=== PATIENT | female | born 1975 | race African-American/Black ===

== ENCOUNTER 2018-01-15 08:59 | Outpatient (CLI) | payer OTHER ==
[2018-01-15] MEDS ORDERED: Magnevist 469MG/ML 20 ML VIAL ONE (09:00)
--- NOTE | 2018-01-15 12:16 | MRI ---
BRAIN MRI AND INTERNAL AUDITORY CANAL MRI WITH AND WITHOUT CONTRAST: HISTORY: Hearing loss in the right ear. COMPARISON: None. TECHNIQUE: Brain and internal auditory canal MRI performed with and without intravenous Gadolinium administratio n. Multisequential, multiplanar imaging is performed. FINDINGS: BRAIN: The calvarium has a normal T1 marrow signal intensity. Midline brain parenchymal structures are unremarkable. Note is made of a partially empty sella. No parenchymal mass, mass effect, or midline shift. Brain volume is age appropriate. Cortical webster white matter differentiation is preserved. The ventricles and sulci are patent and symmetric. Central arterial flow voids are maintained. Absent restricted diffusion. Mild mucosal thickening of the left and right ethmoid air cells. Adequate mastoid air cell aeration. No significant T2 or FLAIR white matter hyperintensities. No pathologic enhancement of the brain parenchyma. INTERNAL AUDITORY CANALS: Symmetric signal intensity in both inner ear structures. No abnormal enha ncement or enhancing masses. Symmetric signal intensity in the 7th and 8th as well as 5th cranial nerve complexes. No abnormal en hancement. Pituitary stalk appears to be midline. Visualized optic nerve/optic chiasm are unremarkable. Nonspecific left level I lymph nodes. IMPRESSION: 1. Unremarkable pre and post contrast brain MRI. 2. Unremarkable appearing post contrast MRI of the internal auditory canals. POS: OFF
== END 2018-01-15 09:00 | disposition home or self-care (01) ==
LOC: SCSMRI 08:59
PROVIDERS: ATTEND Specialist
DX: H90.5 Unspecified sensorineural hearing loss (principal)
CPT/HCPCS: 70553; A9579

== ENCOUNTER 2018-02-26 13:15 | Outpatient (CLI) | payer OTHER ==
--- NOTE | 2018-02-26 16:41 | RAD ---
TWO VIEWS CHEST: Date: 02-26-18 Provided Clinical History: Dyspnea. FINDINGS: No comparison. Cardiac silhouette is within normal limits. Lungs appear clear. There is no pleural fl uid or pneumothorax apparent. IMPRESSION: No evidence for an acute cardiopulmonary process. POS: CET
== END 2018-02-26 13:16 | disposition home or self-care (01) ==
LOC: RAD 13:15
PROVIDERS: ATTEND Internal Medicine Pulmonary Disease
DX: R06.00 Dyspnea, unspecified (principal)
CPT/HCPCS: 71046

== ENCOUNTER 2019-01-21 08:13 | Outpatient (CLI) | payer OTHER | END 2019-01-21 08:14 | disposition home or self-care (01) | LOC: BICMAMMO 08:13 | PROVIDERS: ATTEND Family Medicine | DX: Z12.31 Encounter for screening mammogram for malignant neoplasm of breast (principal); Z80.3 Family history of malignant neoplasm of breast | CPT/HCPCS: 77063; 77067 ==

== ENCOUNTER 2019-02-27 10:44 | Day surgery (SDC) | payer OTHER ==
[2019-02-26 14:00] VITALS: BMI 52.2
[2019-02-27] MEDS ORDERED: PROPOFOL 200 MG/20 ML VIAL ONE (10:53)
[2019-02-27] MEDS ORDERED: Lidocaine 1% PF 5 ML VIAL ONE (10:53)
--- NOTE | 2019-02-27 19:26 | OP ---
DATE OF PROCEDURE: 02/27/2019 PRIMARY CARE PHYSICIAN: Dr. Ema Randhawa. PROCEDURE PERFORMED: Colonoscopy with snare polypectomy. PREPROCEDURE DIAGNOSES: 1. High-risk colon cancer screening. 2. Family history of colon cancer in a sibling, who is less than 60 years old. 3. Family history of colon polyps in a first-degree relative. POSTPROCEDURE DIAGNOSES: 1. Exam to cecum; good bowel preparation. 2. Diminutive polyp in the cecum, removed by cold snare technique. 3. Diffuse melanosis coli, mild to moderate in severity. 4. Small internal hemorrhoids. 5. Otherwise normal colonoscopy. PROCEDURE IN DETAIL: Written informed consent was obtained. The patient was brought to the endoscopy suite. Total intravenous anesthesia was administered by Trina Wahl CRNA. The patient was placed in the left lateral decubitus position. A digital rectal exam was performed that was unremarkable. A Pentax video colonoscope was inserted through the anal canal and advanced under direct visualization to the cecum. Position in the cecum was verified by clear identification of the appendiceal orifice and the ileocecal valve. The quality of the bowel preparation was good. Each colon segment was examined carefully as the colonoscope was slowly withdrawn from the cecum. Haustral folds were normal in appearance. Vascular markings were somewhat attenuated by the presence of diffuse melanosis coli of [id number] severity. In the cecum, a 2 to 3 mm sessile polyp was identified and removed by cold snare technique. The polyp was retrieved for histology. Good hemostasis was confirmed post polypectomy. No other synchronous polyps were identified. In the rectum, a retroflexed view demonstrated small internal hemorrhoids that were not actively bleeding. The colon was decompressed as the colonoscope was removed from the patient. She was transferred to the Day Stay Surgery area for postprocedure monitoring. There were no immediate complications. RECOMMENDATIONS: 1. Await pathology results. 2. Ask the patient to call me in 1 week for pathology results. 3. Repeat colonoscopy in 5 years. 4. Resume previous medications and usual diet. 5. [employer] the patient about minimizing or discontinuing the use of stimulant laxatives. 6. We will suggest a trial of MiraLAX 17 g in water daily instead. 7. Follow up with GI as needed. Job ID: [id number]
== END 2019-02-27 14:16 | disposition home or self-care (01) ==
LOC: SDC 10:44
PROVIDERS: ATTEND Internal Medicine Gastroenterology
PROC: 0DBH8ZX Excision of Cecum, Via Natural or Artificial Opening Endoscopic, Diagnostic (ICD-10-PCS; principal; 2019-02-27)
DX: Z12.11 Encounter for screening for malignant neoplasm of colon (principal); D12.0 Benign neoplasm of cecum; K63.89 Other specified diseases of intestine; K64.8 Other hemorrhoids; K21.9 Gastro-esophageal reflux disease without esophagitis; I10 Essential (primary) hypertension; E78.00 Pure hypercholesterolemia, unspecified; Z80.0 Family history of malignant neoplasm of digestive organs; Z79.899 Other long term (current) drug therapy
CPT/HCPCS: 88305; J2001; J2704